=== PATIENT | male | born 1970 | race Caucasian/White ===

== ENCOUNTER 2023-09-17 02:30 | Inpatient (IN) | payer OTHER ==
[2023-09-17] MEDS ORDERED: MAG HYDROX/AL HYDROX/SIMETH -MYLANTA- ORAL SUSPENSION PO ONE (02:56)
[2023-09-17] MEDS ORDERED: FAMOTIDINE 20 MG TABLET PO ONE (02:56)
[2023-09-17] MEDS ORDERED: ASPIRIN 325 MG TABLET PO ONE (02:57)
[2023-09-17] MEDS ORDERED: ONDANSETRON 4 MG/2 ML VIAL IVPUSH ONE (02:57)
[2023-09-17] MEDS ORDERED: FAMOTIDINE 20 MG TABLET ONE (03:01)
[2023-09-17] MEDS ORDERED: ONDANSETRON 4 MG/2 ML VIAL ONE (03:02)
[2023-09-17] MEDS ORDERED: ASPIRIN 81 MG CHEWABLE TABLETS ONE (03:02)
[2023-09-17] MEDS ORDERED: MAG HYDROX/AL HYDROX/SIMETH 30 ML UNIT-DOSE CUP ONE (03:02)
[2023-09-17] MEDS ORDERED: morphine CARPU-JECT 4 MG/1 ML DISP.SYRIN IVPUSH ONE (03:04)
[2023-09-17 03:08] LABS: BASO % 0.4 % (0-2.0); EOS % 0.2 % (0-4.5); HEMATOCRIT 47.1 % (35.4-49); HEMOGLOBIN 16.2 GM/dL (11.7-16.9); LYMPH % 13.1 % (8-40); MCH 30.9 pg (25.7-33.7); MCHC 34.3 g/dl (32.0-35.9); MEAN CELL VOLUME 90.1 fl (80-96); MEAN PLT VOLUME 8.5 fl (7.5-11.1); MONO % 3.8 % (3.8-10.2); NEUT % 82.5 % (42.8-82.8); PLATELET COUNT 246 10^3/uL (134-434); RBC 5.23 M/mm3 (4.00-5.60); RDW 13.6 % (11.9-15.9)
[2023-09-17] MEDS ORDERED: morphine SULFATE 4 MG/ML VIAL ONE (03:10)
[2023-09-17 03:19] LABS: INR 1.1 (0.83-1.09); PROTHROMBIN TIME (PATIENT) 12.8 SEC (9.7-13.0)
[2023-09-17 03:21] LABS: ACTIVATED PTT 30.2 SECONDS (25.2-36.5)
[2023-09-17 04:17] LABS: CHLORIDE 100 mmol/L (98-107); POTASSIUM 3.5 mmol/L (3.5-5.1); SODIUM 138 mmol/L (136-145)
[2023-09-17 04:20] LABS: ANION GAP 7 mmol/L (4-13); BLOOD UREA NITROGEN 13.7 mg/dL (7-18); CALCIUM 8.4 mg/dL (8.5-10.1); CO2 30 mmol/L (21-32); GLUCOSE,RANDOM 165 mg/dL (74-106); LIPASE 86 U/L (73-393)
[2023-09-17 04:23] LABS: CREATININE 1.1 mg/dL (0.55-1.3); SGOT/AST 28 U/L (15-37); SGPT/ALT 36 U/L (13-61)
[2023-09-17 04:24] LABS: BILIRUBIN,TOTAL 0.5 mg/dL (0.2-1); TOT PROT 7.5 g/dl (6.4-8.2)
[2023-09-17 04:26] LABS: ALK PHOS 102 U/L (45-117)
[2023-09-17 04:28] LABS: N-TERMINAL BNP 154.9 pg/ml (5-125)
[2023-09-17] MEDS ORDERED: ACETAMINOPHEN 1000 MG/100 ML BAG IVPB ONE (07:38)
[2023-09-17] MEDS ORDERED: ACETAMINOPHEN INJECTION 100 ML IVPB ONE (07:52)
[2023-09-17] MEDS ORDERED: NIFEdipine E.R 60 MG TABLET PO SCH (10:45)
[2023-09-17] MEDS ORDERED: ONDANSETRON 4 MG/2 ML VIAL IVPUSH PRN ×2 (10:56→17:06)
[2023-09-17] MEDS ORDERED: DEXTROSE 5%-NORMAL SALINE 1,000 ML IV SCH (11:00)
[2023-09-17] MEDS ORDERED: MAG HYDROX/AL HYDROX/SIMETH 30 ML UNIT-DOSE CUP PO PRN ×2 (11:04→17:06)
[2023-09-17] MEDS ORDERED: SIMETHICONE 80 MG TAB.CHEW (FP) PO PRN ×2 (11:04→17:06)
[2023-09-17] MEDS ORDERED: ACETAMINOPHEN 1000 MG/100 ML BAG IVPB PRN (11:04)
[2023-09-17] MEDS ORDERED: hydrALAZINE HCL 20 MG/ML VIAL IVPUSH ONE (13:30)
[2023-09-17] MEDS ORDERED: ROCURONIUM BROMIDE 50 MG/5 ML SYRINGE ONE ×2 (15:30→16:30)
[2023-09-17] MEDS ORDERED: SUCCINYLCHOLINE CHLORIDE 200 MG/10 ML SYRINGE ONE (15:30)
[2023-09-17] MEDS ORDERED: PROPOFOL 20 ML ONE (15:30)
[2023-09-17] MEDS ORDERED: FENTANYL CITRATE/PF 50 MCG/ML VIAL ONE ×3 (15:30→17:33)
[2023-09-17] MEDS ORDERED: BUPIVACAINE HCL/PF 0.25% (2.5MG/ML) 10 ML VIAL ONE (15:44)
[2023-09-17] MEDS ORDERED: ceFAZolin SODIUM 1 GM VIAL IVPB ONE (15:45)
[2023-09-17] MEDS ORDERED: BUPIVACAINE HCL/PF 0.25% (2.5MG/ML) 10 ML VIAL IJ ONE (16:19)
[2023-09-17 16:21] VITALS: BMI 26.9
[2023-09-17] MEDS ORDERED: NEOSTIGMINE METHYLSULFATE 0.5 MG/1 ML - 10 ML MDV ONE (16:46)
[2023-09-17] MEDS ORDERED: oxyCODONE HCL 5 MG TABLET PO PRN (17:06)
[2023-09-17] MEDS: ACETAMINOPHEN 1000 MG/100 ML BAG IVPB SCH ×2 (17:15→23:47)
[2023-09-17] MEDS ORDERED: LACTATED RINGERS SOLUTION 1,000 ML IV SCH (17:15)
[2023-09-17] MEDS ORDERED: KETOROLAC TROMETHAMINE 15 MG/ML VIAL IVPUSH PRN (23:00)
[2023-09-18 08:38] LABS: BASO % 0.4 % (0-2.0); HEMATOCRIT 45.5 % (35.4-49); HEMOGLOBIN 15.1 GM/dL (11.7-16.9); LYMPH % 9.7 % (8-40); MCH 30.8 pg (25.7-33.7); MCHC 33.2 g/dl (32.0-35.9); MEAN CELL VOLUME 92.9 fl (80-96); MEAN PLT VOLUME 9.3 fl (7.5-11.1); NEUT % 84.9 % (42.8-82.8); PLATELET COUNT 254 10^3/uL (134-434); RDW 13.8 % (11.9-15.9); WHITE BLOOD COUNT 15.3 K/mm3 (4.0-10.0)
[2023-09-18 08:53] LABS: POTASSIUM 3.9 mmol/L (3.5-5.1)
[2023-09-18 08:56] LABS: CALCIUM 8.4 mg/dL (8.5-10.1)
[2023-09-18 08:59] LABS: ALBUMIN 3.6 g/dl (3.4-5.0); BLOOD UREA NITROGEN 16.8 mg/dL (7-18); PHOSPHOROUS 3.4 mg/dL (2.5-4.9)
[2023-09-18 09:02] LABS: TOT PROT 7.1 g/dl (6.4-8.2)
[2023-09-18 09:05] LABS: BILIRUBIN,TOTAL 0.8 mg/dL (0.2-1)
[2023-09-18] MEDS: ACETAMINOPHEN 500 MG TABLET (FP) PO SCH ×4 (09:17→23:52)
[2023-09-18] MEDS: NIFEdipine E.R 60 MG TABLET PO SCH (10:05)
[2023-09-18] MEDS ORDERED: ACETAMINOPHEN 500 MG TABLET (FP) PO SCH (12:00)
[2023-09-19 08:28] LABS: BASO % 0.3 % (0-2.0); HEMATOCRIT 42.6 % (35.4-49); HEMOGLOBIN 14.6 GM/dL (11.7-16.9); MCH 31.3 pg (25.7-33.7); MCHC 34.2 g/dl (32.0-35.9); MEAN CELL VOLUME 91.4 fl (80-96); MEAN PLT VOLUME 9.3 fl (7.5-11.1); MONO % 7.2 % (3.8-10.2); NEUT % 68.5 % (42.8-82.8); PLATELET COUNT 235 10^3/uL (134-434); RBC 4.66 M/mm3 (4.00-5.60); WHITE BLOOD COUNT 8.7 K/mm3 (4.0-10.0)
[2023-09-19] MEDS: NIFEdipine E.R 60 MG TABLET PO SCH (09:26)
[2023-09-19] MEDS: ACETAMINOPHEN 500 MG TABLET (FP) PO SCH (09:26)
[2023-09-20 07:33] LABS: HEMATOCRIT 47.9 % (35.4-49); HEMOGLOBIN 15.7 GM/dL (11.7-16.9); MCH 30.6 pg (25.7-33.7); MCHC 32.8 g/dl (32.0-35.9); MEAN CELL VOLUME 93.3 fl (80-96); MEAN PLT VOLUME 9.1 fl (7.5-11.1); PLATELET COUNT 261 10^3/uL (134-434); RBC 5.13 M/mm3 (4.00-5.60); RDW 13.8 % (11.9-15.9); WHITE BLOOD COUNT 9.6 K/mm3 (4.0-10.0)
[2023-09-20 07:59] LABS: POTASSIUM 4.1 mmol/L (3.5-5.1)
[2023-09-20 08:01] LABS: BLOOD UREA NITROGEN 16.8 mg/dL (7-18); CALCIUM 8.4 mg/dL (8.5-10.1)
[2023-09-20 08:04] LABS: CREATININE 0.8 mg/dL (0.55-1.3); MAGNESIUM 2.6 mg/dL (1.8-2.4); PHOSPHOROUS 3.8 mg/dL (2.5-4.9)
[2023-09-20 08:40] VITALS: RESP 18
[2023-09-20] MEDS: NIFEdipine E.R 60 MG TABLET PO SCH (10:25)
[2023-09-20] MEDS ORDERED: NIFEdipine E.R. 30 MG TABLET PO ONE (12:56)
[2023-09-20] MEDS ORDERED: LOSARTAN POTASSIUM 50 MG TABLET PO ONE (15:32)
[2023-09-20 18:35] VITALS: BP 152/88; PULSE 89; TEMP 99.2
== END 2023-09-20 18:56 | disposition home or self-care (01) | DRG 263 ==
LOC: JER 02:30 → JERBED 09:24 → J4W 11:44
PROVIDERS: ADMIT Internal Medicine; ATTEND Internal Medicine
PROC: 0FT44ZZ Resection of Gallbladder, Percutaneous Endoscopic Approach (ICD-10-PCS; principal; 2023-09-17 14:00)
DX: K80.00 Calculus of gallbladder with acute cholecystitis without obstruction (principal); K82.A1 Gangrene of gallbladder in cholecystitis; I16.0 Hypertensive urgency; R11.2 Nausea with vomiting, unspecified; R10.13 Epigastric pain
CPT/HCPCS: 0241U-QW; 36415; 71045-TC-FY; 74177-TC; 76705-TC; 80048; 80053; 80061; 80307; 83036; 83690; 83735; 83880; 84100; 84484; 85025; 85027; 85610; 85730; 86850; 86900; 86901; 88305-TC; 93005; 93010; 94760; 99285-25